=== PATIENT | female | born 1945 | race Caucasian/White ===

== ENCOUNTER 2019-08-07 02:36 | Emergency (ER) | payer MEDICARE ==
[2019-08-07] MEDS ORDERED: ONDANSETRON 4 MG/2 ML VIAL IVP STA (02:58)
[2019-08-07] MEDS ORDERED: SODIUM CHLORIDE 0.9% 1,000 ML IV STA (02:58)
--- NOTE | 2019-08-07 03:02 | ED Physician Documentation ---
History of Present Illness - Stated complaint Stated Complaint: LETHARY,DISORIENTATED - Chief complaint Chief Complaint: Neuro - History obtained from History obtained from: Patient, Family (74-year-old female history of uterine cancer presented to the emergency room with profound lethargy and weakness over the last 7 to 10 days. Symptom has gradually worsened. Patient had last chemotherapy about 2 weeks ago and was also introduced a new oral medication, lenvima, a target immunotherapy. After taking the medicine, patient gradually become weak. According to the , patient went to the bathroom and did not come back. He discovered patient fell asleep on the toilet. There has been some watery loose stool. No complaint of chest pain. No fever no chills. No cough no congestion. In the emergency room patient is alert and oriented and able to describe her symptoms very clearly. She told me she had a hard time picking words.Both of them are traveling from [facility].) - History of Present Illness Timing: How many weeks ago (1) Review of Systems Ten Systems: 10 systems reviewed and negative Constitutional: reports: Fatigue, Weight Loss Eyes: reports: Reviewed and negative Ears: reports: Reviewed and negative Nose: reports: Reviewed and negative Throat: reports: Reviewed and negative Cardiac: reports: Reviewed and negative Respiratory: reports: Reviewed and negative GI: reports: Nausea, Reviewed and negative : reports: Reviewed and negative Skin: reports: Reviewed and negative Musculoskeletal: reports: Reviewed and negative Neurologic: reports: Reviewed and negative Psychiatric: reports: Reviewed and negative Endocrine: reports: Reviewed and negative Immunocompromised: reports: Reviewed and negative PD PAST MEDICAL HISTORY - Past Medical History Past Medical History: Yes : Other (uterine cancer) - Present Medications Home Medications: Ambulatory Orders Medication Instructions Recorded Confirmed Sulfamethox/Trimeth 800/160 1 each PO BID #14 tablet 08/07/19 [Bactrim Ds 800/160] - Allergies Allergies/Adverse Reactions: Allergies Allergy/AdvReac Type Severity Reaction Status Date / Time Penicillins Allergy Unknown Verified 08/07/19 03:07 PD ED PE NORMAL - Vitals Vital signs reviewed: Yes - General General: Alert and oriented X 3, No acute distress - HEENT HEENT: PERRL, Other (Dry oral mucosa) - Neck Neck: Supple, no meningeal sign - Cardiac Cardiac: RRR, No murmur - Respiratory Respiratory: Clear bilaterally - Abdomen Abdomen: Normal bowel sounds, Soft. No: Non tender (Mild tenderness to the left lower quadrant on deep palpation.This is not newSymptom) - Derm Derm: Warm and dry - Extremities Extremities: No deformity - Neuro Neuro: Alert and oriented X 3 - Psych Psych: Normal mood, Normal affect Results - Vitals Vitals: Vital Signs - 24 hr 08/07/19 08/07/19 02:47 05:24 Temperature 37.2 C 36.9 C Heart Rate 113 H 90 Respiratory 16 20 Rate Blood Pressure 126/77 154/95 H O2 Saturation 97 96 Oxygen O2 Source Room air - EKG (time done) No standard instances Rate: Rate (enter#) (97) Rhythm: Paced - Labs Labs: Laboratory Tests 08/07/19 08/07/19 08/07/19 03:20 03:20 05:00 WBC 6.1 RBC 4.00 L Hgb 12.2 Hct 35.9 L MCV 89.8 MCH 30.5 MCHC 34.0 RDW 13.5 Plt Count 198 MPV 9.0 Neut # (Auto) 5.2 Lymph # (Auto) 0.4 L Bureau # (Auto) 0.3 Eos # (Auto) 0.0 Baso # (Auto) 0.0 Absolute Nucleated RBC 0.00 Nucleated RBC % 0.0 Sodium 127 L Potassium 4.1 Chloride 94 L Carbon Dioxide 21 Anion Gap 12.0 BUN 21 H Creatinine 1.2 H Estimated GFR (MDRD) 44 L Glucose 140 H Calcium 8.9 Total Bilirubin 0.9 AST 29 ALT 19 Alkaline Phosphatase 37 L Total Protein 6.6 L Albumin 3.3 Globulin 3.3 Albumin/Globulin Ratio 1.0 Lipase 24 Urine Color DARK YELLOW Urine Clarity HAZY Urine pH 6.0 Ur Specific [place] 1.025 Urine Protein 100 H Urine Glucose (UA) NEGATIVE Urine Ketones NEGATIVE Urine Occult Blood SMALL H Urine Nitrite NEGATIVE Urine Bilirubin NEGATIVE Urine Urobilinogen 0.2 (NORMAL) Ur Leukocyte Esterase TRACE H Urine RBC 0-5 Urine WBC 6-10 H Ur Epithelial Cells FEW Renal Tubular Ur Squamous Epith Cells FEW Squamous Urine Bacteria Few Urine Casts 0-2 WBC Casts Urine Mucus Marked Strands Ur Microscopic Review INDICATED Urine Culture Comments INDICATED PD MEDICAL DECISION MAKING - ED course Complexity details: d/w patient, d/w family (Patient with history of uterine cancer and ongoing chemotherapy presented with lethargy weakness. Differential diagnoses include sepsis, dehydration, electrolyte myology, UTI, in emergency room patient appear much improved according to her . She still appear weak. They agree with the work-up and IV Normal saline infusion.) ED course: This lady with uterine cancer currently started on immunotherapy over the last 1 week presented with symptom of weakness that is progressively getting worse. Initial differential diagnosis includes sepsis, infection, UTI, generalized weakness secondary to immunotherapy Patient was reassessed at 545 and disclose impression of early urinary tract tract infection. First dose of Septra DS was provided for her. I had a discussion with her regarding immunotherapy and the side effect. This potentially can be a side effect of it. After 1 L normal saline infusion she is feeling much improved. She is alert and oriented. She is pleased with her care today. She will follow with her primary care doctor or oncologist in [place] when she gets back. Departure - Departure Disposition: 01 Home, Self Care Clinical Impression: Lethargy Urinary tract infection Qualifiers: Urinary tract infection type: site unspecified Condition: Stable Plan of Treatment: Please complete the entire course of antibiotic and follow-up with your primary care doctor in 7 days for repeat urinalysis for test of cure Instructions: ED UTI Cystitis Female Prescriptions: Sulfamethox/Trimeth 800/160 [Bactrim Ds 800/160] 1 each PO BID #14 tablet Discharge Date/Time: 08/07/19 06:04
[2019-08-07 03:31] LABS: BASOPHILS % (AUTO) 0.3 %; HGB - HEMOGLOBIN 12.2 g/dL (12.0-16.0); LYMPHOCYTES # (AUTO) 0.4 10^3/uL (1.5-3.5); LYMPHOCYTES % (AUTO) 6.3 %; MEAN CORPUSCULAR HEMOGLOBIN 30.5 pg (27.0-31.0); MEAN CORPUSCULAR VOLUME 89.8 fL (81.0-99.0); MONOCYTES # (AUTO) 0.3 10^3/uL (0.0-1.0); MONOCYTES % (AUTO) 5.4 %; NEUTROPHILS # (AUTO) 5.2 10^3/uL (1.5-6.6); NEUTROPHILS % (AUTO) 86.2 %; PLT - PLATELET COUNT 198 10^3/uL (130-450); RED CELL DISTRIBUTION WIDTH 13.5 % (12.0-15.0); WHITE BLOOD COUNT 6.1 x10^3/uL (4.8-10.8)
[2019-08-07 03:44] LABS: ALBUMIN 3.3 g/dL (3.2-5.5); BILIRUBIN,TOTAL 0.9 mg/dL (0.2-1.0); CALCIUM 8.9 mg/dL (8.5-10.3); CREATININE 1.2 mg/dL (0.4-1.0); TOTAL PROTEIN 6.6 g/dL (6.7-8.2)
[2019-08-07 05:14] LABS: GLUCOSE, URINE (UA) NEGATIVE (NEGATIVE); KETONES,URINE (UA) NEGATIVE (NEGATIVE); LEUKOCYTE ESTERASE, URINE TRACE (NEGATIVE); NITRITE,URINE NEGATIVE (NEGATIVE); OCCULT BLOOD,URINE SMALL (NEGATIVE); PROTEIN,URINE 100 mg/dL (NEGATIVE); UROBILINOGEN,URINE 0.2 (NORMAL) E.U./dL (NORMAL)
[2019-08-07 05:25] VITALS: BP 154/95
[2019-08-07 05:27] LABS: BILIRUBIN,URINE NEGATIVE (NEGATIVE); CLARITY,URINE HAZY (CLEAR); ICTOTEST,URINE NEGATIVE; RBC,URINE 0-5 /HPF (0-5); SQUAMOUS EPITHELIAL CELL,UR FEW Squamous (<= Few)
[2019-08-07 05:28] LABS: BACTERIA,URINE Few /HPF (None Seen); EPITHELIAL CELLS,UR FEW Renal Tubular /HPF (<= Few); MUCUS,URINE Marked Strands
[2019-08-07] MEDS ORDERED: SULFAMETH/TRIMETH DS 800/160 MG TABLET PO STA (05:34)
== END 2019-08-07 06:04 | disposition home or self-care (01) ==
LOC: ED 02:36
DX: R53.1 Weakness (principal); R53.83 Other fatigue; C55 Malignant neoplasm of uterus, part unspecified; N39.0 Urinary tract infection, site not specified
CPT/HCPCS: 36415; 80053; 81001; 83690; 85025; 87040; 87086; 93005; 96361; 96374; 96375; 99283; 99284; A9270; 81003